=== PATIENT | female | born 1990 | race Caucasian/White ===

== ENCOUNTER → 2024-08-09 09:34 | Outpatient (REF) | payer OTHER, SELFPAY | LOC: WDC 09:34 | PROVIDERS: ATTENDING PHYSICIAN Obstetrics & Gynecology; FAMILY PHYSICIAN Nurse Practitioner | DX: T85.9XXA Unspecified complication of internal prosthetic device, implant and graft, initial encounter (principal); N64.4 Mastodynia | CPT/HCPCS: 76642; 77062; 77066 ==